=== PATIENT | male | born 1950 | race Caucasian/White ===

== ENCOUNTER 2019-03-21 09:36 | Observation (INO) ==
--- NOTE | 2019-03-19 13:28 | EKG Report ---
Test Performed on : 03/19/2019 1:15:11 PM Test Reason : PAT Blood Pressure : / mmHG Vent. Rate : 079 BPM Atrial Rate : 079 BPM P-R Int : 186 ms QRS Dur : 090 ms QT Int : 368 ms P-R-T Axes : 041 -33 028 degrees QTc Int : 421 ms Normal sinus rhythm. Left axis deviation Abnormal ECG When compared with ECG of 24-MAR-2015 10:28, No significant change was found Confirmed by Ponce CASPER, P.J.M ([id number]) on 03/19/2019 6:33:09 PM
[2019-03-19 13:29] LABS: URINE SOURCE CLEAN CATCH
[2019-03-19 13:32] LABS: BILIRUBIN URINE NEGATIVE (NEGATIVE); BLOOD URINE NEGATIVE (NEGATIVE); COLOR YELLOW; GLUCOSE URINE NEGATIVE (NEGATIVE); KETONE URINE NEGATIVE (NEGATIVE); LEUKOCYTES URINE NEGATIVE (NEGATIVE); NITRITE URINE NEGATIVE (NEGATIVE); PROTEIN URINE NEGATIVE (NEGATIVE); SP GRAVITY URINE 1.023; TURBIDITY URINE CLEAR (CLEAR); UROBILINOGEN URINE NORMAL (NORMAL)
[2019-03-19 13:34] LABS: UR EPITHELIAL CELLS <10 /HPF (<10); URINE BACTERIA NEGATIVE /HPF; URINE RBC <10 /HPF (<10); URINE WBC <10 /HPF (<10)
[2019-03-19 13:37] LABS: BASO# 0.01 X1000 (0.0-0.2); BASO% 0.2 % (0.0-0.8); EOS# 1.37 X1000 (0.0-0.7); EOS% 21.7 % (0.0-10.0); HEMATOCRIT 42.4 % (42.0-52.0); HEMOGLOBIN 14.2 g/dL (14.0-18.0); INR 1.08; LYMPH# 1.52 X1000 (1.2-3.4); LYMPH% 24.1 % (20.5-51.1); MCH 30.7 PG (27-31); MCHC 33.5 g/dL (33-37); MCV 91.6 FL (81-99); MONO# 0.37 X1000 (0.11-0.59); MONO% 5.9 % (1.7-9.3); NEUT# 3.03 X1000 (1.4-6.5); NEUT% 48.1 % (42.2-75.2); PLT 245 X1000 (130-400); PROTIME 14.2 Seconds (11.0-16.0); RBC 4.63 XMIL (4.7-6.1); RDW 12.7 % (11.5-14.5)
[2019-03-19 13:47] LABS: HEMOGLOBIN A1C 5.5 % (4.8-6.0)
[2019-03-19 13:48] LABS: BANDS 1 % (0-1); EOS 13 % (1-10); LYMPHS 22 % (21-51); MONO 6 % (1-9); SEGS 58 % (42-75)
[2019-03-19 13:52] LABS: AGAP 13; BUN 21 mg/dL (8-22); CALCIUM 9.1 mg/dL (8.8-10.2); CHLORIDE 101 mmol/L (98-107); COSMO 280; ESTIMATED GFR > 60; GLUCOSE 125 mg/dL (70-104); SODIUM 138 mmol/L (136-145); TCO2 24 mmol/L (25-35)
[~2019-03-21 09:36] MED LIST: FLEXERIL PO SCH; NORVASC PO SCH
[2019-03-21] MEDS ORDERED: COLACE ONE (10:24)
[2019-03-21] MEDS ORDERED: REGLAN ONE (10:24)
[2019-03-21] MEDS ORDERED: CELEBREX ONE (10:24)
[2019-03-21] MEDS ORDERED: PEPCID ONE (10:24)
[2019-03-21] MEDS ORDERED: LYRICA ONE (10:24)
[2019-03-21] MEDS ORDERED: KEFZOL 1 GM/D5W 2 GM/100 ML IVPB ONE (10:25)
[2019-03-21] MEDS ORDERED: LR 1,000 ML ONE (10:25)
[2019-03-21] MEDS ORDERED: DURAMORPH ONE (11:30)
[2019-03-21] MEDS ORDERED: MARCAINE 0.25% PF ONE (11:31)
[2019-03-21] MEDS ORDERED: VANCOMYCIN ONE (11:31)
[2019-03-21] MEDS ORDERED: TORADOL ONE (11:31)
[2019-03-21] MEDS ORDERED: CYKLOKAPRON 1,000 MG/NS 2,000 MG/200 ML IVPB ONE (11:31)
[2019-03-21] MEDS ORDERED: SODIUM CHLORIDE 0.9% ONE (11:31)
[2019-03-21] MEDS ORDERED: DIPRIVAN 1% 500 MG/50 ML BOTTLE ONE (11:43)
[2019-03-21] MEDS ORDERED: VERSED ONE (11:48)
[2019-03-21] MEDS ORDERED: EXPAREL 1.3% ONE (11:53)
[2019-03-21] MEDS ORDERED: FENTANYL ONE (12:07)
[2019-03-21] MEDS: EXPAREL 1.3% ONE ×2 (13:03→13:04)
[2019-03-21 13:19] LABS: URINE SOURCE CATH
[2019-03-21 13:21] LABS: BILIRUBIN URINE NEGATIVE (NEGATIVE); BLOOD URINE SMALL (NEGATIVE); COLOR YELLOW; GLUCOSE URINE NEGATIVE (NEGATIVE); KETONE URINE NEGATIVE (NEGATIVE); LEUKOCYTES URINE NEGATIVE (NEGATIVE); NITRITE URINE NEGATIVE (NEGATIVE); PH URINE 6.5; PROTEIN URINE NEGATIVE (NEGATIVE); SP GRAVITY URINE 1.013; TURBIDITY URINE CLEAR (CLEAR); UROBILINOGEN URINE NORMAL (NORMAL)
[2019-03-21] MEDS ORDERED: OFIRMEV 1000 MG/ISOTONIC SOLN 1,000 MG/100 ML BOTTLE ONE (13:21)
[2019-03-21] MEDS ORDERED: ZOFRAN ONE (13:21)
[2019-03-21] MEDS ORDERED: DECADRON ONE (13:21)
[2019-03-21 13:22] LABS: UR EPITHELIAL CELLS <10 /HPF (<10); URINE BACTERIA NEGATIVE /HPF; URINE WBC <10 /HPF (<10)
[2019-03-21] MEDS ORDERED: DIPRIVAN 1% ONE (14:09)
[2019-03-21] MEDS ORDERED: NS 1,000 ML ONE (14:38)
--- NOTE | 2019-03-21 15:25 | Diag Imaging Result Doc PS360 ---
EXAM: KNEE 1-2 VIEWS-RIGHT 03/21/2019 HISTORY: r tka TECHNIQUE: Right knee three views COMMENT: There is a total knee arthroplasty. There is no evidence of acute fracture or other bony abnormality. IMPRESSION: Postsurgical change. Electronically signed by Pancho Prabhakar 03/21/2019 3:23 PM
[2019-03-21] MEDS ORDERED: MORPHINE IV PRN ×3 (16:45)
[2019-03-21] MEDS ORDERED: OXY IR PO PRN (16:45)
[2019-03-21] MEDS ORDERED: MILK OF MAGNESIA PO PRN (16:45)
[2019-03-21] MEDS ORDERED: ZOFRAN PO PRN (16:45)
[2019-03-21] MEDS: NS 1,000 ML IV SCH (17:56)
--- NOTE | 2019-03-21 20:01 | OPERATIVE NOTE ---
PROCEDURE DATE: 03/21/2019 PREOPERATIVE DIAGNOSIS: Failed right unicompartmental arthroplasty. POSTOPERATIVE DIAGNOSIS: Failed right unicompartmental arthroplasty. PROCEDURE: Revision right total knee arthroplasty with DePuy Sigma size 4 right femur with a 31 mm femoral sleeve and a 75 x 16 universal fluted stem, a size 4 tibial tray with a 37 mm metaphyseal sleeve, a 75 x 12 fluted stem, a 10 mm rotating platform tibial insert, and a 35 mm round dome patella. SURGEON: Reyes Levi MD. GRISTMILL OPERATOR: NIKI Hunter, who was necessary for proper retraction and manipulation of the extremity during the case. SECOND CUPOLA MELTER: Kaden Rod RN. ANESTHESIA: Spinal. IV FLUIDS: 1300 mL lactated Ringer's. ESTIMATED BLOOD LOSS: 50 mL. TOURNIQUET TIME: 120 minutes at 300 mmHg. DRAINS: One Hemovac drain was placed and was not sewn in. COMPLICATIONS: None. INDICATION: The patient is a 69-year-old male who is approximately 15-years status post unicompartmental arthroplasty of the right knee. The patient has had a chronic history of pain, and has had pain and discomfort in his right knee, and has had evidence of some significant wear of the polyethylene noted and some evidence of osteoarthritis. Given patient's findings, the recommendation is to proceed with revision right total knee arthroplasty. Risks and benefits of surgery were explained, including the risks of anesthesia, , bleeding, infection, failure to relieve pain, postoperative stiffness, nerve injury, blood clots, and other imponderables. All questions were answered. Patient's family wished to proceed with surgery. DETAILS OF OPERATION: The patient was taken to the operating room and underwent spinal anesthesia. After adequate anesthesia was obtained, he was placed supinely on the operating table. Right lower extremity was subsequently prepped and draped in the usual sterile fashion. An Esmarch was used to exsanguinate the right lower extremity. The tourniquet was inflated to 300 mmHg. A standard anteromedial incision was made through the previous surgical incision and extended both proximally and distally. The medialized skin envelopes were developed. Standard medial parapatellar arthrotomy was then performed. Retractor was then placed. Attention was turned to the femoral component and an osteotome was used circumferentially to remove this implant. After this had been performed and after adequate elevation the soft tissue, a provisional cut of the proximal tibia was conducted. Reaming was then conducted both of the of the tibia and femur. Up to a size 12 for the tibia and up to a size 16 for the femur. Over reaming was then conducted of the proximal tibia. A size 4 tray with a 37 mm metaphyseal sleeve and a 75 x 12 stem was placed. Attention was then turned to the femur with the intramedullary guide remaining in the canal. The distal femoral cutting block was pinned in position. Distal femoral cut was then performed. A chamfer cutting block was then placed in position and the knee held in approximately 90 degrees of flexion. To set the rotation, 2 guidepins were placed. Posterior cut as well as the chamfer cut was then made. After this had been performed, a box cutting guide was placed on the distal femur and a box cut was performed. Prior to this, broaching up to size 31 mm metaphyseal sleeve was placed and used to assist with the placement of the cutting blocks with the stem. The stem was removed prior to placing the box cut. After this had been performed, a trial femoral construct was then placed, a trial tibial 10 mm rotating platform insert was then placed, and had good soft tissue balancing. The patella was everted and resected in standard fashion. A size 35 appeared to be the correct size. Corresponding holes were drilled. A trial patella component was then placed and had good patellofemoral tracking. Trial components were then removed. Copious irrigation was then performed with antibiotic pulsatile lavage, while vancomycin was mixed with cement on the back table. The femoral and tibial construct was assembled. Sequential cementing was then performed with first the tibia and this was then impacted into position. Excess cement was removed with a [place]. The femoral cement was placed on the distal femur and the femoral construct was then packed into position. Excess cement was removed with a [place], followed by trial tibial insert in full extension. Axial loading was maintained while cement cured. Patella was cemented in standard fashion. Patella clamp was placed. While the cement was curing, Exparel was placed in deep soft tissue, as well as subcutaneous tissue. After cement had cured, peripheral cement was removed with a small osteotome. A 10 mm rotating platform tibial insert appeared to be the correct size. Trial insert was removed. Exparel was placed in the deep posterior capsule. The wound was copiously irrigated with antibiotic pulsatile lavage. A 10 mm rotating platform tibial insert was then placed. The knee was then carried through range of motion, had good soft tissue balance, good range of motion, good patellofemoral tracking. A 0.018 Hemovac drain was placed and was not sewn in. Copious irrigation was then performed again with antibiotic pulsatile lavage. Next, #1 Vicryl was then used to repair the arthrotomy, followed by 2-0 Vicryl to repair subcutaneous tissue, and skin devon. Adaptic, sterile 4 x 4, Webril, cryounit, Jaime wrap was applied to the right lower extremity. Patient tolerated the procedure well, was transferred to the recovery room in stable condition. cc: Reyes Levi MD
[2019-03-21] MEDS ORDERED: BENADRYL PO ONE (20:39)
[2019-03-21] MEDS: KEFZOL 2 GM/D5W 2 GM/50 ML IVPB IV SCH (20:40)
[2019-03-21] MEDS: OXY IR PO PRN (20:45)
[2019-03-21] MEDS ORDERED: PERIDEX MT SCH (21:00)
[2019-03-21] MEDS ORDERED: MIRAPEX PO SCH (21:00)
[2019-03-21] MEDS ORDERED: COLACE PO SCH (21:00)
[2019-03-21] MEDS ORDERED: FLEXERIL PO SCH (21:00)
[2019-03-22] MEDS: OXY IR PO PRN ×2 (01:59→06:57)
[2019-03-22] MEDS: KEFZOL 2 GM/D5W 2 GM/50 ML IVPB IV SCH (04:15)
[2019-03-22 06:59] LABS: HEMATOCRIT 38.4 % (42.0-52.0); HEMOGLOBIN 13.1 g/dL (14.0-18.0)
[2019-03-22 07:18] LABS: AGAP 10; BUN 19 mg/dL (8-22); CALCIUM 8.4 mg/dL (8.8-10.2); CHLORIDE 100 mmol/L (98-107); COSMO 273; CREATININE 1.1 mg/dL (0.7-1.2); ESTIMATED GFR > 60; GLUCOSE 119 mg/dL (70-104); POTASSIUM 4.3 mmol/L (3.5-5.1); SODIUM 135 mmol/L (136-145); TCO2 25 mmol/L (25-35)
[2019-03-22] MEDS: NS 1,000 ML IV SCH (08:00)
[2019-03-22 08:25] VITALS: BP 119/75
[2019-03-22] MEDS ORDERED: ASPIRIN PO SCH (09:00)
--- NOTE | 2019-03-22 10:55 | ORTHOPAEDICS PROGRESS NOTE ---
DATE: 03/22/2019 SUBJECTIVE: The patient is a pleasant, 69-year-old male who is 1 day status post revision right total knee arthroplasty. He is currently resting comfortably. PHYSICAL EXAMINATION: On physical examination of the patient's right lower extremity, his wound looks good. There are no signs or symptoms of infection. He is able to perform a straight leg raise. He is able to ambulate without difficulty. His calf is soft. He has active dorsiflexion and plantarflexion. LABORATORY DATA: His hemoglobin is 13.1, hematocrit is 38.4. IMPRESSION: Postoperative day #1 status post right revision total knee arthroplasty. PLAN: At this point, we will plan on discharging the patient home. We will arrange for outpatient physical therapy. Patient will follow up in the office on 04/03/2019. cc: Reyes Levi MD
== END 2019-03-22 08:33 | disposition home or self-care (01) ==
LOC: OPS 09:36 → PAT 09:36 → 4N 09:36 → EDSTATUS 10:00
PROVIDERS: ADMIT Orthopaedic Surgery Adult Reconstructive Orthopaedic Surgery; ATTEND Orthopaedic Surgery Adult Reconstructive Orthopaedic Surgery